=== PATIENT | male | born 1995 | race Caucasian/White ===

== ENCOUNTER 2023-08-29 13:00 | Emergency (ER) | payer OTHER ==
[~2023-08-29] VITALS: Ht 175.3 cm; Wt 99.8 kg
[2023-08-29 13:07] VITALS: BP_SYST 149; PULSE 95; RESP 18; TEMP 97.8; O2SAT 98
[2023-08-29] MEDS ORDERED: CARB15DR93 LEFT EAR (13:24)
[2023-08-29 13:38] VITALS: BP_SYST 149; PULSE 95; RESP 18; TEMP 97.8; O2SAT 98
== END 2023-08-29 13:37 | disposition home or self-care (01) ==
LOC: SED 13:00
DX: H61.22 Impacted cerumen, left ear (principal)
CPT/HCPCS: 99282

== ENCOUNTER 2024-02-02 11:00 | Emergency (ER) | payer OTHER ==
[~2024-02-02] VITALS: Ht 175.3 cm; Wt 104.3 kg
[~2024-02-02 11:00] MED LIST: CARB15DR93 LEFT EAR
[2024-02-02 11:04] VITALS: BP_SYST 145; PULSE 62; RESP 18; TEMP 98.3; O2SAT 98
[2024-02-02] MEDS: HYDROcodone/ACETAMIN 5-325 MG TAB (NORCO/ VICODIN) PO ONE (11:22)
[2024-02-02] MEDS: KETOROLAC TROMETHAMINE 60 MG/2 ML VIAL IM ONE (11:22)
[2024-02-02] MEDS ORDERED: IBUP-1971 PO (12:55)
[2024-02-02] MEDS ORDERED: HYDR-3927 PO (12:55)
[2024-02-02 13:12] VITALS: BP_SYST 131; PULSE 65; RESP 19; TEMP 98; O2SAT 98
== END 2024-02-02 13:10 | disposition home or self-care (01) ==
LOC: SED 11:00
DX: S23.3XXA Sprain of ligaments of thoracic spine, initial encounter (principal); M79.601 Pain in right arm; Z79.899 Other long term (current) drug therapy; X50.0XXA Overexertion from strenuous movement or load, initial encounter; Y93.89 Activity, other specified; Y92.89 Other specified places as the place of occurrence of the external cause; Y99.8 Other external cause status
CPT/HCPCS: 99283; 72072; 96372; J1885